=== PATIENT | male | born 1970 | race American Indian/Alaskan Native ===

== ENCOUNTER 2021-03-08 13:36 | Emergency (ER) | payer SELFPAY ==
[2021-03-08] MEDS ORDERED: LACTATED RINGERS 1,000 ML ONE (14:27)
[2021-03-08] MEDS ORDERED: TETRACAINE 0.5% OPHTH SOLN 4ML ONE (14:28)
[2021-03-08] MEDS ORDERED: TETRACAINE 0.5% OPHTH SOLN 4ML OU ONE (14:28)
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
[2021-03-08] MEDS ORDERED: LACTATED RINGERS 3,000 ML ONE (15:32)
[2021-03-08] MEDS ORDERED: LACTATED RINGERS 2,000 ML ONE (16:00)
[2021-03-08 16:47] VITALS: BP 156/91
[2021-03-13] MEDS ORDERED: LACTATED RINGERS 1,000 ML IV ONE ×4 (01:31→01:34)
== END 2021-03-08 16:10 | disposition hospice, inpatient (51) ==
LOC: ED 13:36
DX: T26.42XA Burn of left eye and adnexa, part unspecified, initial encounter (principal); T26.41XA Burn of right eye and adnexa, part unspecified, initial encounter; I10 Essential (primary) hypertension; F17.200 Nicotine dependence, unspecified, uncomplicated; X08.8XXA Exposure to other specified smoke, fire and flames, initial encounter; Y93.89 Activity, other specified; Y92.89 Other specified places as the place of occurrence of the external cause; Y99.8 Other external cause status
CPT/HCPCS: 99282; J7120